=== PATIENT | female | born 1980 | race Caucasian/White ===

== ENCOUNTER 2019-03-02 03:28 | Emergency (ER) | payer BC ==
[2019-03-02 03:43] VITALS: O2SAT 98
[2019-03-02] MEDS ORDERED: Sodium Chloride 0.9% 1,000 ML IV STA (04:26)
[2019-03-02 05:05] LABS: BASO # 0.1 K/uL (0.0-0.2); BASO % 0.8 % (0.0-2.0); EOS # 0.1 K/uL (0.0-0.7); EOS % 0.7 % (0.0-4.0); LYMPH % 19.1 % (20.0-40.0); MEAN CELL VOLUME 89.1 fl (81.0-99.0); MEAN CORPUSCULAR HEMOGLOBIN 29.9 pg (27.0-31.0); MEAN CORPUSCULAR HGB CONC 33.5 g/dL (33.0-37.0); MEAN PLATELET VOLUME 9.2 fl (7.2-11.7); MONO # 0.6 K/uL (0.0-0.8); MONO % 6.2 % (0.0-10.0); NEUT # 7.7 K/uL (1.8-7.0); NEUT % 73.2 % (50.0-75.0); NRBC % 0.1 % (0.0-0.0); RBC 4.01 Mil/uL (3.80-5.20); RED CELL DISTRIBUTION WIDTH 12.7 % (11.5-14.5); WHITE BLOOD COUNT 10.4 K/uL (4.8-10.8)
[2019-03-02 05:14] LABS: VENOUS BLOOD GAS PCO2 48 mmHg (40-60); VENOUS BLOOD GAS PO2 25 mm/Hg (30-55); VENOUS BLOOD PH 7.36 (7.32-7.43)
[2019-03-02 05:21] LABS: BLOOD UREA NITROGEN 8 mg/dl (7-17); CALCIUM 8.5 mg/dL (8.4-10.2); GFR NON-AFRICAN AMERICAN > 60
[2019-03-02 05:36] LABS: SQUAMOUS EPITHIAL 1 /hpf (0-5); URINE BILIRUBIN NEGATIVE (NEGATIVE); URINE BLOOD MODERATE (NEGATIVE); URINE CLARITY SLIGHTY-CLOUDY (Clear); URINE COLOR YELLOW (YELLOW); URINE GLUCOSE (UA) NEG (NEGATIVE); URINE LEUKOCYTE ESTERASE TRACE Leu/uL (Negative); URINE PROTEIN NEGATIVE (NEGATIVE); URINE UROBILINOGEN 0.2-1.0 mg/dL (0.2-1.0)
--- NOTE | 2019-03-02 06:07 | ED PDOC ---
HPI: Female Pain Time Seen by Provider: 03/02/19 03:49 Chief Complaint (Nursing): Female Genitourinary Chief Complaint (Provider): Female Genitourinary History Per: Patient History/Exam Limitations: no limitations Onset/Duration Of Symptoms: Days (x14) Additional Complaint(s): 38 years old female with presents to ER for evaluation of chills onset 2 weeks ago. Patient reports she miscarried one week ago at approximately 7 weeks and states it was a spontaneous miscarriage. She states around the sixth week of she developed chills that persisted until now. Patient reports she had shakes today that she never had before and subjective fever that was on and off for the past 2 weeks. She states she had a lot of nausea but no vomiting and reports mild pelvic pain and spotting. Patient denies vaginal discharge and urinary symptoms. PMD: None provided : 3 Para: 2 Miscarriage: 1 Past Medical History Reviewed: Historical Data, Nursing Documentation, Vital Signs Vital Signs: Last Vital Signs Temp 97.7 F 03/02/19 04:41 Pulse 88 03/02/19 04:41 Resp 17 03/02/19 04:41 BP 137/69 03/02/19 04:41 Pulse Ox 98 03/02/19 04:41 Primary Care Provider: FAMILY PROVIDER,NO - Medical History PMH: No Chronic Diseases - Surgical History Surgical History: No Surg Hx - Family History Family History: States: Unknown Family Hx - Social History Current smoker - smoking cessation education provided: No Alcohol: None Drugs: Denies - Allergies Allergies/Adverse Reactions: Allergies Allergy/AdvReac Type Severity Reaction Status Date / Time ANTIBIOTIC Allergy RASH Uncoded 03/02/19 03:49 Review of Systems ROS Statement: Except As Marked, All Systems Reviewed And Found Negative Constitutional: Positive for: Fever (Subjective), Chills Gastrointestinal: Positive for: Nausea, Abdominal Pain (Pelvic pain). Negative for: Vomiting Genitourinary Female: Positive for: Other (Vaginal spotting). Negative for: Vaginal Discharge Physical Exam - Reviewed Nursing Documentation Reviewed: Yes Vital Signs Reviewed: Yes - Physical Exam Appears: Positive for: Well, No Acute Distress Head Exam: Positive for: ATRAUMATIC, NORMOCEPHALIC Skin: Positive for: Normal Color, Warm, Dry Eye Exam: Positive for: Normal appearance, EOMI, PERRL ENT: Positive for: Normal ENT Inspection Neck: Positive for: Normal, Painless ROM, Supple Cardiovascular/Chest: Positive for: Regular Rate, Rhythm. Negative for: Murmur Respiratory: Positive for: Normal Breath Sounds. Negative for: Respiratory Distress Gastrointestinal/Abdominal: Positive for: Normal Exam, Soft. Negative for: Tenderness Pelvic Exam: Positive for: Blood (mild), Other (Irritation to cervix. Delivery Table Feeder was nurse Bhavna Lainez) Back: Positive for: Normal Inspection. Negative for: L CVA Tenderness, R CVA Tenderness Extremity: Positive for: Normal ROM. Negative for: Pedal Edema, Deformity Neurological/Psych: Positive for: Awake, Alert, Oriented (x3) - Laboratory Results Result Diagrams: 03/02/19 04:45 03/02/19 04:45 Lab Results: pO2 25 mm/Hg (30-55) L 03/02/19 05:09 VBG pH 7.36 (7.32-7.43) 03/02/19 05:09 VBG pCO2 48 mmHg (40-60) 03/02/19 05:09 VBG HCO3 24.2 mmol/L 03/02/19 05:09 VBG Total CO2 28.6 mmol/L (22-28) H 03/02/19 05:09 VBG O2 Sat (Calc) 51.6 % (40-65) 03/02/19 05:09 VBG Base Excess 1.0 mmol/L (0.0-2.0) 03/02/19 05:09 VBG Potassium 3.3 mmol/L (3.6-5.2) L 03/02/19 05:09 Sodium 134.0 mmol/L (132-148) 03/02/19 05:09 Chloride 101.0 mmol/L (98-107) 03/02/19 05:09 Glucose 87 mg/dL (65-105) 03/02/19 05:09 Lactate 0.9 mmol/L (0.7-2.1) 03/02/19 05:09 FiO2 21.0 % 03/02/19 05:09 Urine Color Yellow (YELLOW) 03/02/19 04:45 Urine Clarity Slighty-cloudy (Clear) 03/02/19 04:45 Urine pH 8.0 (5.0-8.0) 03/02/19 04:45 Ur Specific [place] 1.009 (1.003-1.030) 03/02/19 04:45 Urine Protein Negative mg/dL (NEGATIVE) 03/02/19 04:45 Urine Glucose (UA) Neg mg/dL (NEGATIVE) 03/02/19 04:45 Urine Ketones Negative mg/dL (NEGATIVE) 03/02/19 04:45 Urine Blood Moderate (NEGATIVE) 03/02/19 04:45 Urine Nitrate Negative (NEGATIVE) 03/02/19 04:45 Urine Bilirubin Negative (NEGATIVE) 03/02/19 04:45 Urine Urobilinogen 0.2-1.0 mg/dL (0.2-1.0) 03/02/19 04:45 Ur Leukocyte Esterase Trace [place]/uL (Negative) 03/02/19 04:45 Urine RBC (Auto) 2 /hpf (0-3) 03/02/19 04:45 Urine Microscopic WBC 2 /hpf (0-5) 03/02/19 04:45 Ur Squamous Epith Cells 1 /hpf (0-5) 03/02/19 04:45 - ECG O2 Sat by Pulse Oximetry: 98 (RA) Pulse Ox Interpretation: Normal Medical Decision Making Medical Decision Making: Time: 425 A/P: 38 years old female presents with subjective fever, chills and pelvic pain status post spontaneous --Check labs for sepsis and pelvis/transvaginal US to rule out retained product of conception --Sap Developer was Bhavna Lainez, the nurse. 0700 Patient signed out to Dr. Parra, pending pelvis/transvaginal US. Scribe Attestation: Documented by Kaia Bill, acting as a scribe for Ray Askew MD. Provider Scribe Attestation: All medical record entries made by the Scribe were at my direction and personally dictated by me. I have reviewed the chart and agree that the record accurately reflects my personal performance of the history, physical exam, medical decision making, and the department course for this patient. I have also personally directed, reviewed, and agree with the discharge instructions and disposition. Disposition - Clinical Impression Clinical Impression: Pelvic pain - Patient ED Disposition Is Patient to be Admitted: Transfer of Care Counseled Patient/Family Regarding: Studies Performed, Diagnosis - Disposition Disposition: Transfer of Care Disposition Time: 07:00 Condition: IMPROVED Forms: [employer] (Indonesian) Patient Signed Over To: Denae Parra Handoff Comments: pending U/S
--- NOTE | 2019-03-02 07:27 | ED PDOC ---
- Laboratory Results Result Diagrams: 03/02/19 04:45 03/02/19 04:45 Lab Results: pO2 25 mm/Hg (30-55) L 03/02/19 05:09 VBG pH 7.36 (7.32-7.43) 03/02/19 05:09 VBG pCO2 48 mmHg (40-60) 03/02/19 05:09 VBG HCO3 24.2 mmol/L 03/02/19 05:09 VBG Total CO2 28.6 mmol/L (22-28) H 03/02/19 05:09 VBG O2 Sat (Calc) 51.6 % (40-65) 03/02/19 05:09 VBG Base Excess 1.0 mmol/L (0.0-2.0) 03/02/19 05:09 VBG Potassium 3.3 mmol/L (3.6-5.2) L 03/02/19 05:09 Sodium 134.0 mmol/L (132-148) 03/02/19 05:09 Chloride 101.0 mmol/L (98-107) 03/02/19 05:09 Glucose 87 mg/dL (65-105) 03/02/19 05:09 Lactate 0.9 mmol/L (0.7-2.1) 03/02/19 05:09 FiO2 21.0 % 03/02/19 05:09 Urine Color Yellow (YELLOW) 03/02/19 04:45 Urine Clarity Slighty-cloudy (Clear) 03/02/19 04:45 Urine pH 8.0 (5.0-8.0) 03/02/19 04:45 Ur Specific [place] 1.009 (1.003-1.030) 03/02/19 04:45 Urine Protein Negative mg/dL (NEGATIVE) 03/02/19 04:45 Urine Glucose (UA) Neg mg/dL (NEGATIVE) 03/02/19 04:45 Urine Ketones Negative mg/dL (NEGATIVE) 03/02/19 04:45 Urine Blood Moderate (NEGATIVE) 03/02/19 04:45 Urine Nitrate Negative (NEGATIVE) 03/02/19 04:45 Urine Bilirubin Negative (NEGATIVE) 03/02/19 04:45 Urine Urobilinogen 0.2-1.0 mg/dL (0.2-1.0) 03/02/19 04:45 Ur Leukocyte Esterase Trace [place]y/uL (Negative) 03/02/19 04:45 Urine RBC (Auto) 2 /hpf (0-3) 03/02/19 04:45 Urine Microscopic WBC 2 /hpf (0-5) 03/02/19 04:45 Ur Squamous Epith Cells 1 /hpf (0-5) 03/02/19 04:45 Beta HCG, Quant 080026.00 mIU/mL 03/02/19 04:45 - ECG O2 Sat by Pulse Oximetry: 98 (RA) Pulse Ox Interpretation: Normal Medical Decision Making Medical Decision Makin Patient signed out to me by Dr. Askew pending US, reassessment. 0900 US Pelvis/OB FINDINGS: UTERUS: Gestational sac: Single intrauterine gestation. Heart rate: 160 bpm. age (Ultrasound estimated): 7 weeks 6 days based on crown-rump length mean 1.5 cm. Gestational sac measures 3.2 cm. Mirna-gestational hemorrhage: A [id number] sub chorionic hemorrhage is appreciated superiorly and minimally anteriorly measure 1.6 x 1.5 x 0.7 cm, possibly subacute or chronic given its predominantly hypoechoic appearance. Date of delivery (Ultrasound estimated) : 10/12/2019. Uterus measures 12.0 x 9.6 x 6.5 cm. Normal in size and appearance. CERVIX: Measures 4.4 cm. Long and closed. No cervical abnormality seen. RIGHT OVARY: Not identified. No suspicious adnexal mass or fluid collection appreciable. LEFT OVARY: Not identified. No suspicious adnexal mass or fluid collection appreciable. FREE FLUID: None. OTHER FINDINGS: None. IMPRESSION: A single viable intrauterine gestation is identified sonographic age of 7 weeks 6 days based on CRL mean as per above. 1.6 cm subchorionic hemorrhage is noted supero-anteriorly. Neither ovary is identified in this transabdominal examination with patient preferred not to undergo transvaginal ultrasonography. No suspicious adnexal findings demonstrated transabdominally. [id number] Patient informed of US findings. Type & Screen reviewed as well. Patient stable for discharge home. Instructed to follow up with [facility] in 2-3 days. Return precautions given. ScribeAttestation: Documented byAna Kim acting as a scribe for Denae Parra MD. Provider ScribeAttestation: All medical record entries made by the Scribe were at my direction and personally dictated by me. I have reviewed the chart and agree that the record accurately reflects my personal performance of the history, physical exam, medical decision making, and the department course for this patient. I have also personally directed, reviewed, and agree with the discharge instructions and disposition. Disposition - Clinical Impression Clinical Impression: Abdominal pain in , Threatened - POA Present On Arrival: None - Disposition Disposition: Routine/Home Disposition Time: 11:50 Condition: IMPROVED Additional Instructions: FOLLOW-UP WITH OB-ECOLOGIST TECHNICIAN WITHIN 2 DAYS FOR REEVALUATION. Prescriptions: Pnv No.95/Ferrous Fum/Folic AC [ Vitamins Tablet] 1 each PO DAILY #30 tablet Instructions: Bleeding With , Acute Abdomen (Belly Pain) Forms: [employer] (Albanian)
--- NOTE | 2019-03-02 09:06 | US ---
Date of service: 03/02/2019 PROCEDURE: OB Pelvic Ultrasound HISTORY: 1 week s/p 7 week spont. ; abd pain, vb LMP: 01/03/2019 potentially reflecting 8 week 2 day gestation. Note, the patient preferred not to undergo transvaginal ultrasonography with entire exam performed by trans abdominal technique. COMPARISON: None available. FINDINGS: UTERUS: Gestational sac: Single intrauterine gestation. Heart rate: 160 bpm. age (Ultrasound estimated): 7 weeks 6 days based on crown-rump length mean 1.5 cm. Gestational sac measures 3.2 cm. Mirna-gestational hemorrhage: A [id number] sub chorionic hemorrhage is appreciated superiorly and minimally anteriorly measure 1.6 x 1.5 x 0.7 cm, possibly subacute or chronic given its predominantly hypoechoic appearance. Date of delivery (Ultrasound estimated) : 10/12/2019. Uterus measures 12.0 x 9.6 x 6.5 cm. Normal in size and appearance. CERVIX: Measures 4.4 cm. Long and closed. No cervical abnormality seen. RIGHT OVARY: Not identified. No suspicious adnexal mass or fluid collection appreciable. LEFT OVARY: Not identified. No suspicious adnexal mass or fluid collection appreciable. FREE FLUID: None. OTHER FINDINGS: None. IMPRESSION: A single viable intrauterine gestation is identified sonographic age of 7 weeks 6 days based on CRL mean as per above. 1.6 cm subchorionic hemorrhage is noted supero-anteriorly. Neither ovary is identified in this transabdominal examination with patient preferred not to undergo transvaginal ultrasonography. No suspicious adnexal findings demonstrated transabdominally.
[2019-03-02 11:44] VITALS: RESP 18
[2019-03-02] MEDS ORDERED: Potassium Chloride 20 mEq ER Tab PO STA (12:36)
[2019-03-02 15:57] VITALS: BP 104/73; PULSE 76; TEMP 98.5
== END 2019-03-02 12:35 | disposition home or self-care (01) ==
LOC: H.ER 03:28
DX: O26.91 Pregnancy related conditions, unspecified, first trimester (principal); R10.2 Pelvic and perineal pain; O20.0 Threatened abortion
CPT/HCPCS: 76815; 80048; 81003; 82803; 84702; 85025; 86850; 86900; 87491; 87591; 96365; 96375; 99285; J2405; J2765; J7030